=== PATIENT | female | born 1995 | race Caucasian/White ===

== ENCOUNTER 2016-06-19 09:22 | Emergency (ER) | payer OTHER ==
[2016-06-19 09:27] VITALS: TEMP 98.4; BMI 41.5
--- NOTE | 2016-06-19 10:02 | PDOC ---
History of Present Illness - General Chief Complaint: Pain Stated Complaint: VOMITING, DIARRHEA Time Seen by Provider: 06/19/16 09:35 History Source: Patient Exam Limitations: No Limitations - History of Present Illness Travel History: No Initial Comments: 06/19/16 09:57 Came to emergency department with with complaints of acute onset of nausea and vomiting starting early this morning. States has had at least 10 episodes of emesis, 2 episodes of diarrhea stool. No fevers but has felt chills , states abdominal pain is diffuse and primarily epigastric. States over the weekend had excessive drinking, where admits to drinking 9 beers yesterday with whiskey and had equivalent or possibly more on Sunday. states is not a usual pattern for patient, is not an excessive drinker but because of the holiday there were lots of parties they attended. No one else at home is sick, is 4-month-old at home no one else from barbecue or democrat yesterday has been ill with any gastroenteritis or food poisoning. It is had 2 diarrhea stools, but not foul-smelling, no evidence of blood bright red blood or black tarriness. No vaginal issues, no drainage, LMP has been regular. 4 months and currently has IUD Timing/Duration: reports: intermittent Quality: reports: cramping, sharpness Abdominal Pain Onset Location: reports: epigastric, generalized abdomen Pain Radiation: reports: no radiation Alleviating Factors: improves with: None Past History - Travel Traveled outside of the country in the last 30 days: No Close contact w/someone who was outside of country & ill: No - Past Medical History Allergies/Adverse Reactions: Allergies Allergy/AdvReac Type Severity Reaction Status Date / Time No Known Allergies Allergy Verified 06/19/16 09:27 Home Medications: Ambulatory Orders Albuterol Sulfate Inhaler - [Ventolin Hfa Inhaler -] 1 - 2 inh PO Q4H PRN Asthma: Yes (LAST ATTACK 08/18) Cancer: No Cardiac Disorders: No Diabetes: No HTN: No Seizures: No Thyroid Disease: No - Family Disease History Family Disease History: Diabetes: Father - Reproductive History (#): 0 Para: 0 Therapeutic (s) & number: No - Psycho/Social/Smoking Cessation Hx Anxiety: No Suicidal Ideation: No Smoking History: Never smoked Years of Tobacco Use: 7 Have you smoked in the past 12 months: No Number of Cigarettes Smoked Daily: 2 Information on smoking cessation initiated: No Hx Alcohol Use: No Drug/Substance Use Hx: No Substance Use Type: None Hx Substance Use Treatment: No Abd/GI Specific PMHX - Complaint Specific PMHX Colitis: No Diverticulitis: No Gall Bladder Disease: No GERD: No Hepatitis: No Pancreatitis: No GI Ulcer Disease: No Review of Systems - Review of Systems Able to Perform ROS?: Yes Is the patient limited Portuguese proficient: Yes Constitutional: Yes: Symptoms Reported, See HPI, Chills, Malaise. No: Fever HEENTM: Yes: See HPI. No: Symptoms Reported, Nose Congestion, Throat Swelling, Difficulty Swallowing Respiratory: Yes: Symptoms reported, See HPI. No: Cough, Orthopnea, Shortness of Breath Cardiac (ROS): No: Symptoms Reported ABD/GI: Yes: Symptoms Reported : Yes: See HPI. No: Symptoms Reported, Burning, Dysuria, Discharge Integumentary: Yes: See HPI, Pallor. No: Symptoms Reported, Bruising, Erythema , Flushing Neurological: Yes: Symptoms reported All Other Systems: Reviewed and Negative *Physical Exam - Vital Signs Last Vital Signs Temp Pulse Resp BP Pulse Ox 98.4 F 85 18 123/71 98 06/19/16 09:24 06/19/16 09:24 06/19/16 09:24 06/19/16 09:24 06/19/16 09:24 - Physical Exam General Appearance: Yes: Nourished, Appropriately Dressed. No: Apparent Distress, Alcohol on Breath HEENT: positive: MARKEL, Normal ENT Inspection, Normal Voice, TMs Normal, Pharynx Normal Neck: positive: Tender, Supple. negative: Lymphadenopathy (R), Lymphadenopathy (L) Respiratory/Chest: positive: Lungs Clear, Normal Breath Sounds. negative: Respiratory Distress, Decreased Breath Sounds, Wheezing Cardiovascular: positive: Regular Rhythm Gastrointestinal/Abdominal: positive: Normal Bowel Sounds, Soft (rebound tenderness or guarding,, morbidly obese). negative: Tender Musculoskeletal: positive: Normal Inspection. negative: CVA Tenderness Extremity: positive: Normal Capillary Refill, Normal Inspection, Normal Range of Motion Integumentary: positive: Normal Color, Dry, Warm, Pale Neurologic: positive: sales intern II-XII NML intact, Fully Oriented, Alert, Normal Mood/ Affect, Normal Response, Motor Strength 5/5 ED Treatment Course - LABORATORY CBC & Chemistry Diagram: 06/19/16 10:09 06/19/16 10:09 Progress Note - Progress Note Progress Note: Mild pain in acute onset of nausea and vomiting, will check basic labs, provide IV fluids, and reevaluate. May be alcohol related Medical Decision Making - Medical Decision Making 06/19/16 11:52 States feels much improved after IV Zofran, and liter of IV fluids. Laboratory work within normal limits, currently menstruating indicated by +3 blood in urine. Will discharge *DC/Admit/Observation/Transfer Diagnosis at time of Disposition: Gastroenteritis - Discharge Dispostion Disposition: HOME Condition at time of disposition: Stable Admit: No - Patient Instructions Printed Discharge Instructions: DI for Viral Gastroenteritis -- Adult Additional Instructions: Rest, drink lots of fluids: Teas, water, soups Bharati jason, carbonated beverages for the bubbles May try peppermint teas Avoid heavy , spicy or fatty foods until symptoms have resolved Avoid contact with others until fevers and symptoms resolved Lots of handwashing and good hygiene Continue [id number] medications for symptomatic relief Tylenol or Motrin for fever and pain Stop drinking alcohol Followup with private physician in one to 2 days as needed Return to emergency department for worsened symptoms, fevers, dehydration - Post Discharge Activity Work/School Note: Back to Work
[2016-06-19] MEDS ORDERED: ONDANSETRON 4 MG/2 ML VIAL IVPUSH ONE (10:13)
[2016-06-19] MEDS ORDERED: ONDANSETRON 4 MG/2 ML VIAL ONE (10:20)
[2016-06-19 10:39] LABS: BASOPHIL 0.2 % (0-2.0); EOSINOPHIL 1.4 % (0-4.5); MCH 22.8 pg (25.7-33.7); MCHC 32.1 g/dl (32.0-36.0); MEAN PLT VOLUME 8.1 fl (7.5-11.1); PLATELET COUNT 255 K/MM3 (134-434); RDW 20.1 % (11.6-15.6); WHITE BLOOD COUNT 7.8 K/mm3 (4.0-10.0)
[2016-06-19 10:41] LABS: ALBUMIN 3.9 g/dl (3.4-5.0); ANION GAP 7 (8-16); BILIRUBIN,TOTAL 0.8 mg/dL (0.2-1.0); CALCIUM 8.9 mg/dL (8.5-10.1); CO2 28 mmol/L (21-32); CREATININE 0.6 mg/dL (0.55-1.02); GLUCOSE,RANDOM 100 mg/dL (74-106); SGOT/AST 22 U/L (15-37); SGPT/ALT 33 U/L (12-78); TOT PROT 7.3 g/dl (6.4-8.2); URINE APPEARANCE CLEAR; URINE BILIRUBIN NEGATIVE (NEGATIVE); URINE COLOR YELLOW; URINE GLUCOSE (UA) NEGATIVE (NEGATIVE); URINE KETONE 1+ (NEGATIVE); URINE LEUK ESTERASE NEGATIVE (NEGATIVE); URINE NITRITE NEGATIVE (NEGATIVE); URINE UROBILINOGEN 4.0 E.U/dl E.U./dl (0.2-1.0)
[2016-06-19 10:42] LABS: ALK PHOS 116 U/L (45-117)
--- NOTE | 2016-06-19 10:42 | PDOC ---
*Physical Exam - Vital Signs Last Vital Signs Temp Pulse Resp BP Pulse Ox 98.4 F 85 18 123/71 98 06/19/16 09:24 06/19/16 09:24 06/19/16 09:24 06/19/16 09:24 06/19/16 09:24 ED Treatment Course - LABORATORY CBC & Chemistry Diagram: 06/19/16 10:09 06/19/16 10:09 - Medications Given in the ED: ED Medications Discontinued Medications Generic Name Dose Route Start Last Admin Trade Name Aroldo PRN Reason Stop Dose Admin Ondansetron HCl 4 mg 06/19/16 10:13 06/19/16 10:24 Zofran Injection IVPUSH 06/19/16 10:14 4 mg ONCE ONE Administration Medical Decision Making - Medical Decision Making 06/19/16 10:42 Pt seen by the Advanced Practice Provider under my direct supervision Ancillary studies reviewed I agree with plan as outlined by the Advanced Practice Provider KRISTA Ramirez *DC/Admit/Observation/Transfer Diagnosis at time of Disposition: Gastroenteritis - Discharge Dispostion Disposition: HOME Condition at time of disposition: Stable - Referrals Referrals: Purnima Campbell [Primary Care Provider] - - Patient Instructions Printed Discharge Instructions: DI for Viral Gastroenteritis -- Adult Additional Instructions: Rest, drink lots of fluids: Teas, water, soups Bharati jason, carbonated beverages for the bubbles May try peppermint teas Avoid heavy , spicy or fatty foods until symptoms have resolved Avoid contact with others until fevers and symptoms resolved Lots of handwashing and good hygiene Continue [id number] medications for symptomatic relief Tylenol or Motrin for fever and pain Stop drinking alcohol Followup with private physician in one to 2 days as needed Return to emergency department for worsened symptoms, fevers, dehydration - Post Discharge Activity Work/School Note: Back to Work
[2016-06-19 11:26] LABS: URINE BLOOD 3+ (NEGATIVE); URINE PROTEIN 1+ (NEGATIVE)
[2016-06-19 12:18] VITALS: BP 120/68; PULSE 80
[2016-06-19 16:36] LABS: ANISOCYTOSIS 1+; HYPOCHROMIA 1+; MICROCYTOSIS 1+
== END 2016-06-19 12:00 | disposition home or self-care (01) ==
LOC: JER 09:22
PROC: 3E033GC Introduction of Other Therapeutic Substance into Peripheral Vein, Percutaneous Approach (ICD-10-PCS; principal; 2016-06-19)
DX: K52.9 Noninfective gastroenteritis and colitis, unspecified (principal)
CPT/HCPCS: 36415; 80053; 80307; 81003; 81015; 84703; 85025; 99283-25

== ENCOUNTER 2018-10-27 09:59 | Emergency (ER) | payer OTHER ==
[2018-10-27 10:05] VITALS: BMI 32.4
--- NOTE | 2018-10-27 10:19 | PDOC ---
History of Present Illness - General Chief Complaint: Nausea/Vomiting Stated Complaint: VOMITING/ ABD PAIN Time Seen by Provider: 10/27/18 10:15 History Source: Patient Exam Limitations: Language Barrier (zimbabwean) - History of Present Illness Initial Comments: 10/27/18 10:44 Margarita Zheng is a 22yF w PMHx asthma, obesity presenting w epigastric pain and vomiting. Woke up at 4a this morning w sudden onset epgiastric pain. Associated nausea and vomiting 7x, non bloody. Unable to keep fluids down. Took zantac without relief. At [employer] at restaurant last night w family, no one else sick. Last bowel movement 1 day ago, normal.l No abdominal surgeries. Denies fever, SOB, chest pain, urinary/bowel mvmt changes. Past History - Past Medical History Allergies/Adverse Reactions: Allergies Allergy/AdvReac Type Severity Reaction Status Date / Time No Known Allergies Allergy Verified 10/27/18 10:05 Home Medications: Ambulatory Orders Albuterol Sulfate Inhaler - [Ventolin Hfa Inhaler -] 1 - 2 inh PO Q4H PRN Asthma: Yes (LAST ATTACK 08/18) Cancer: No Cardiac Disorders: No COPD: No CHF: No Diabetes: No HTN: No Hypercholesterolemia: No Kidney Stones: No Seizures: No Thyroid Disease: No - Surgical History Abdominal Surgery: No Appendectomy: No Cardiac Surgery: No Cholecystectomy: No Gastric Stapling: No GI Surgery: No Lung Surgery: No Neurologic Surgery: No Orthopedic Surgery: No - Family Disease History Family Disease History: Diabetes: Father - Reproductive History (#): 0 Para: 0 Therapeutic (s) & number: No - Suicide/Smoking/Psychosocial Hx Smoking History: Never smoked Years of Tobacco Use: 7 Have you smoked in the past 12 months: No Number of Cigarettes Smoked Daily: 2 Hx Alcohol Use: No Drug/Substance Use Hx: No Substance Use Type: None Hx Substance Use Treatment: No Review of Systems - Review of Systems Constitutional: No: Chills, Fever HEENTM: No: Eye Pain, Ear Pain, Nose Pain, Nose Congestion, Throat Pain, Mouth Pain Respiratory: No: Cough, Shortness of Breath Cardiac (ROS): No: Chest Pain, Palpitations, Syncope ABD/GI: Yes: Nausea, Poor Appetite, Poor Fluid Intake, Vomiting. No: Abdominal Distended, Constipated, Diarrhea : No: Burning, Dysuria, Discharge, Flank Pain, Hematuria, Incontinence Musculoskeletal: No: Back Pain, Joint Pain, Muscle Pain, Muscle Weakness Integumentary: No: Bruising, Flushing, Lesions Neurological: No: Headache, Paresthesia, Seizure, Tingling, Tremors Psychiatric: No: Anxiety, Depression Endocrine: No: Excessive Sweating, Flushing, Intolerance to Cold, Intolerance to Heat Hematologic/Lymphatic: No: Anemia, Blood Clots, Easy Bleeding *Physical Exam - Vital Signs Last Vital Signs Temp Pulse Resp BP Pulse Ox 98.6 F 80 16 107/62 100 10/27/18 10:03 10/27/18 10:03 10/27/18 10:03 10/27/18 10:03 10/27/18 10:03 - Physical Exam General Appearance: Yes: Nourished, Appropriately Dressed, Mild Distress, Obese. No: Alcohol on Breath, Intoxicated HEENT: positive: EOMI, MARKEL, Normal Voice, Hearing Grossly Normal. negative: Pale Conjunctivae, Scleral Icterus (R), Scleral Icterus (L), Nasal Congestion, Rhinorrhea Respiratory/Chest: positive: Lungs Clear, Normal Breath Sounds. negative: Chest Tender, Respiratory Distress, Crackles, Rales, Rhonchi, Stridor, Wheezing Cardiovascular: positive: Regular Rhythm, Regular Rate, S1, S2. negative: Edema , Murmur Gastrointestinal/Abdominal: positive: Normal Bowel Sounds, Tender (moderate tenderness to palpation epigastric region), Flat, Soft, Guarding (mild guarding epigastric region). negative: Organomegaly, Pulsatile Mass, Distended, Rebound , Hernia Extremity: positive: Delayed Capillary Refill Integumentary: positive: Normal Color, Dry Neurologic: positive: Fully Oriented, Alert, Normal Mood/Affect, Normal Response , Responsive. negative: Sensory Deficit, Confused, Disoriented ED Treatment Course - LABORATORY CBC & Chemistry Diagram: 10/27/18 11:14 10/27/18 11:14 Medical Decision Making - Medical Decision Making 10/27/18 10:42 CXR EKG CBC CMP lipase UAHCG zofran for nausea, 1L NS, pepcid, maalox for GI upset EKG shows NSR, trop neg CBC, CMP normal + HCG - , ordered TVUS, HCG quant RUQ US did not show signs of cholangitis TVUS showed IUP estimated gestational age 6 weeks w heart activity. L ovarian cyst 6.2 x 5.8cm likely hemorrhagic corpus luteal cyst CXR clear, UA normal Margarita Zheng is a 22yF w PMHx asthma, obesity presenting w epigastric pain and vomiting. Symptoms due to w +HCG. TVUS showed IUP estimated gestational age 6 weeks w heart activity. L ovarian cyst 6.2 x 5.8cm likely hemorrhagic corpus luteal cyst. Unlikely ovarian torsion - no LLQ tenderness, absent 10/10 lower AB pain. RUQ US showed no signs of cholangitis. Not ACS in setting of NSR EKG, neg trop, no UTI. CXR clear lungs. Given zofran for nausea, 1L NS, pepcid, maalox for GI upset D/c home w follow up w obgyn for and L ovarian cyst. *DC/Admit/Observation/Transfer Diagnosis at time of Disposition: Left ovarian cyst, Hyperemesis gravidarum Normal IUP (intrauterine ) on ultrasound Qualifiers: Trimester: first trimester Qualified Code(s): Z34.91 - Encounter for supervision of normal , unspecified, first trimester - Discharge Dispostion Disposition: HOME Condition at time of disposition: Improved Decision to Admit order: No - Referrals Referrals: Purnima Campbell [Primary Care Provider] - - Patient Instructions Printed Discharge Instructions: DI for -- Discomforts and Remedies Additional Instructions: You were seen for abdominal pain and vomiting. Your labs and ultrasound shows that you are and have a left ovarian cyst. You were given medication to relieve your pain and vomiting. Please make an appointment with your obgyn Dr Posey regarding your and ovarian cyst. Start taking vitamins. Come back to the ED if you continue vomiting, have lower abdominal pain Print Language: CAPE VERDEAN - Post Discharge Activity
[2018-10-27] MEDS ORDERED: FAMOTIDINE 20 MG/50 ML IVPB 20 MG/50 ML MG IVPB ONE ×2 (10:37→10:58)
[2018-10-27] MEDS ORDERED: ONDANSETRON 4 MG/2 ML VIAL IVPUSH ONE (10:37)
[2018-10-27] MEDS ORDERED: SODIUM CHLORIDE 0.9% 500 ML INFUS.BAG IV ONE (10:37)
[2018-10-27] MEDS ORDERED: MAG HYDROX/AL HYDROX/SIMETH -MYLANTA- ORAL SUSPENSION PO ONE (10:38)
[2018-10-27] MEDS ORDERED: ONDANSETRON 4 MG/2 ML VIAL ONE (10:57)
[2018-10-27] MEDS ORDERED: MAG HYDROX/AL HYDROX/SIMETH 30 ML UNIT-DOSE CUP ONE (10:57)
[2018-10-27 11:24] LABS: BASO % 0.5 % (0-2.0); EOS % 1.1 % (0-4.5); HEMATOCRIT 33.3 % (32.4-45.2); LYMPH % 22.5 % (8-40); MCH 23.7 pg (25.7-33.7); MCHC 32.9 g/dl (32.0-36.0); MEAN PLT VOLUME 7.7 fl (7.5-11.1); NEUT % 68.9 % (42.8-82.8); PLATELET COUNT 303 K/MM3 (134-434); RBC 4.63 M/mm3 (3.60-5.2); RDW 19.6 % (11.6-15.6); WHITE BLOOD COUNT 8.1 K/mm3 (4.0-10.0)
--- NOTE | 2018-10-27 11:36 | PDOC ---
Documentation entered by Aleshia Rabago SCRIBE, acting as scribe for Simon Pimentel MD. Simon Pimentel MD: This documentation has been prepared by the Gem aiken Nirvannie, SCRIBE, under my direction and personally reviewed by me in its entirety. I confirm that the documentation accurately reflects all work, treatment, procedures, and medical decision making performed by me. Attending Attestation - Resident Resident Name: Jn Moreland - ED Attending Attestation I have performed the following: I have examined & evaluated the patient, The case was reviewed & discussed with the resident, I agree w/resident's findings & plan, Exceptions are as noted - HPI HPI: 10/27/18 11:27 The patient is a 22 year old female, with a significant past medical history of asthma, who presents to the emergency department with, 1 day of sudden onset epigastric abdominal pain, nausea with approximately 7 episodes of emesis. Patient took Zantac, without relief. She denies anyone in the family being sick with similar symptoms. She denies recent fevers, chills, diarrhea, headache, or dizziness. She denies recent dysuria, frequency, urgency, or hematuria. She denies recent chest pain or shortness of breath. Allergies: NKDA Primary Care Physician: Dr. Campbell - Physicial Exam PE: 10/27/18 11:39 "GENERAL: Awake, alert, and fully oriented, in no acute distress. HEAD: No signs of trauma EYES: PERRLA, EOMI, sclera anicteric, conjunctiva clear ENT: Auricles normal inspection, hearing grossly normal, nares patent, oropharynx clear without exudates. Moist mucosa NECK: Nontender, no stepoffs, Normal ROM, supple, no lymphadenopathy, JVD, or masses LUNGS: Breath sounds equal, clear to auscultation bilaterally. No wheezes, and no crackles HEART: Regular rate and rhythm, normal S1 and S2, no murmurs, rubs or gallops ABDOMEN: + RUQ TTP, normoactive bowel sounds. No guarding, no rebound. No masses EXTREMITIES: Normal range of motion, no edema. No clubbing or cyanosis. No cords, erythema, or tenderness NEUROLOGICAL: Cranial nerves II through XII intact. 5/5 strength and sensation in all extremities, Normal speech, normal gait, normal cerebellar function SKIN: Warm, Dry, normal turgor, no rashes or lesions noted. - Medical Decision Making 10/27/18 11:39 22 F with epigastric and RUQ pain, vomiting. Will evaluate for olivia/ pancreatitis. No lower abdominal pain to suggest appy/colitis/diverticulitis or pelvic pathology. - Labs, lipase - RUQ sono - GI cocktail 10/27/18 11:42 Pt with + test Will add OB US 10/27/18 13:21 US shows viable 6wk as well as large L ovarian cyst. Pt without LLQ pain or other s/s of ovarian torsion Pt reports that she had an IUD in place, but it is not visualized on the US. Likely fell out. RUQ sono negative Pt reassessed - tolerating PO Pt is well appearing, with normal vitals. Clinically stable for DC at this time. I discussed the physical exam findings, ancillary test results and final diagnoses with the patient. I answered all of the patient's questions. The patient was satisfied with the care received and felt comfortable with the discharge plan and treatment plan. The patient agrees to follow up with the primary care physician within 24-72 hours. 10/27/18 13:31
[2018-10-27 11:58] LABS: ALBUMIN 3.7 g/dl (3.4-5.0); ALK PHOS 91 U/L (45-117); ANION GAP 5 MMOL/L (8-16); BILIRUBIN,TOTAL 0.3 mg/dL (0.2-1); BLOOD UREA NITROGEN 10.7 mg/dL (7-18); CALCIUM 8.9 mg/dL (8.5-10.1); CHLORIDE 105 mmol/L (98-107); CO2 27 mmol/L (21-32); CREATININE 0.6 mg/dL (0.55-1.3); GLUCOSE,RANDOM 99 mg/dL (74-106); LIPASE 70 U/L (73-393); POTASSIUM 4.2 mmol/L (3.5-5.1); SGOT/AST 17 U/L (15-37); SGPT/ALT 20 U/L (13-61); SODIUM 137 mmol/L (136-145); TOT PROT 6.9 g/dl (6.4-8.2)
[2018-10-27 14:59] LABS: PH,URINE 7.5 (5.0-8.0); URINE APPEARANCE CLEAR; URINE BILIRUBIN NEGATIVE (NEGATIVE); URINE COLOR YELLOW; URINE GLUCOSE (UA) NEGATIVE (NEGATIVE); URINE KETONE NEGATIVE (NEGATIVE); URINE LEUK ESTERASE NEGATIVE (NEGATIVE); URINE NITRITE NEGATIVE (NEGATIVE); URINE PROTEIN NEGATIVE (NEGATIVE); URINE UROBILINOGEN 0.2 mg/dL (0.2-1.0)
[2018-10-27 15:18] VITALS: BP 110/61; PULSE 78; TEMP 97.8
--- NOTE | 2018-10-28 08:17 | EKG ---
Test Reason : Blood Pressure : / mmHG Vent. Rate : 077 BPM Atrial Rate : 077 BPM P-R Int : 158 ms QRS Dur : 086 ms QT Int : 380 ms P-R-T Axes : 048 -16 008 degrees QTc Int : 430 ms NORMAL SINUS RHYTHM MINIMAL VOLTAGE CRITERIA FOR LVH, MAY BE NORMAL VARIANT BORDERLINE ECG NO PREVIOUS ECGS AVAILABLE Confirmed by OSVALDO LEONARD, CHINO ([id number]) on 10/28/2018 8:16:35 AM Referred By: Confirmed By:CHINO RILEY MD
== END 2018-10-27 15:24 | disposition home or self-care (01) ==
LOC: JER 09:59
PROC: 3E033GC Introduction of Other Therapeutic Substance into Peripheral Vein, Percutaneous Approach (ICD-10-PCS; principal; 2018-10-27)
PROC: 3E033GC Introduction of Other Therapeutic Substance into Peripheral Vein, Percutaneous Approach (ICD-10-PCS; 2018-10-27)
DX: O26.891 Other specified pregnancy related conditions, first trimester (principal); O21.0 Mild hyperemesis gravidarum; O34.81 Maternal care for other abnormalities of pelvic organs, first trimester; N83.202 Unspecified ovarian cyst, left side; Z3A.01 Less than 8 weeks gestation of pregnancy
CPT/HCPCS: 36415; 71045-TC-FY; 76705-TC; 76817-TC; 80053; 81003; 82550; 83690; 84484; 84702; 84703; 85025; 93005; 93010; 96365; 96375; 99283-25

== ENCOUNTER 2018-11-29 08:52 | Emergency (ER) | payer OTHER ==
[2018-11-29 09:04] VITALS: BP 108/64; PULSE 80; TEMP 97.9; BMI 32.3
--- NOTE | 2018-11-29 09:07 | PDOC ---
History of Present Illness <Simone Fulton - Last Filed: 11/29/18 11:45> - General History Source: Patient Exam Limitations: No Limitations - History of Present Illness Initial Comments: Pt is a 22 yo F, @10 weeks, who is presenting from home with complaints of persistent nausea/vomiting x2 days. Pt states she has not been able to tolerate PO intake during this time, and was unable to urinate today. Pt denies any abdominal pain or vaginal bleeding, and has an appointment for OB US at 1pm today. Pt denies any fevers/chills, headache, vision changes, syncope, chest pain, palpitations, SOB, abdominal pain, urinary symptoms, diarrhea/constipation , or leg swelling. Allergies: NKDA PCP: Dr. Campbell OB: Dr. Silvia Posey Social: Pt denies any cigarette, alcohol, or drug use. Pt denies any recent travel or sick contacts. Surgical: no relevant history. Family: no relevant history. 11/29/18 09:47 <Lavern Andrade - Last Filed: 11/29/18 11:53> - General Chief Complaint: ,Possible Stated Complaint: NAUSEA/10 WEEKS Time Seen by Provider: 11/29/18 09:07 Past History <Simone Fulton - Last Filed: 11/29/18 11:45> - Travel Traveled outside of the country in the last 30 days: No Close contact w/someone who was outside of country & ill: No - Past Medical History Asthma: Yes (LAST ATTACK 08/18) Cancer: No Cardiac Disorders: No COPD: No CHF: No Diabetes: No HTN: No Hypercholesterolemia: No Kidney Stones: No Seizures: No Thyroid Disease: No - Surgical History Abdominal Surgery: No Appendectomy: No Cardiac Surgery: No Cholecystectomy: No Gastric Stapling: No GI Surgery: No Lung Surgery: No Neurologic Surgery: No Orthopedic Surgery: No - Reproductive History (#): 0 Para: 0 Therapeutic (s) & number: No - Psycho Social/Smoking Cessation Hx Smoking History: Never smoked Years of Tobacco Use: 7 Have you smoked in the past 12 months: No Number of Cigarettes Smoked Daily: 2 Information on smoking cessation initiated: No Hx Alcohol Use: No Drug/Substance Use Hx: No Substance Use Type: None Hx Substance Use Treatment: No <Lavern Andrade - Last Filed: 11/29/18 11:53> - Past Medical History Allergies/Adverse Reactions: Allergies Allergy/AdvReac Type Severity Reaction Status Date / Time No Known Allergies Allergy Verified 10/27/18 10:05 Home Medications: Ambulatory Orders Albuterol Sulfate Inhaler - [Ventolin Hfa Inhaler -] 1 - 2 inh PO Q4H PRN Doxylamine Succinate/Vit B6 [Rachel Herron 10-10 mg Tablet] 1 each PO ASDIR #30 tablet. 11/29/18 Abd/GI Specific PMHX - Complaint Specific PMHX Colitis: No Diverticulitis: No Gall Bladder Disease: No GERD: No Hepatitis: No Irritable Bowel Synd (IBS): No Pancreatitis: No GI Ulcer Disease: No <Lavern Andrade - Last Filed: 11/29/18 11:53> Review of Systems - Review of Systems Able to Perform ROS?: Yes Is the patient limited Turkish proficient: No Constitutional: Yes: Weight Stable. No: Chills, Diaphoresis, Fever, Loss of Appetite, Malaise, Weakness HEENTM: No: Recent change in vision, Nose Congestion, Throat Pain, Throat Swelling, Difficulty Swallowing Respiratory: No: Cough, Orthopnea, Shortness of Breath Cardiac (ROS): No: Chest Pain, Edema, Irregular Heart Rate, Lightheadedness, Palpitations, Syncope, Chest Tightness ABD/GI: Yes: Nausea, Poor Appetite, Poor Fluid Intake, Vomiting. No: Constipated, Diarrhea, Indigestion, Abdominal cramping : No: Burning, Dysuria, Frequency, Flank Pain, Hematuria, Pain, Urgency Musculoskeletal: No: Muscle Pain, Muscle Weakness Integumentary: No: Rash Neurological: No: Headache, Numbness, Weakness, Unsteady Gait, Dizziness Psychiatric: No: Sleep Pattern Change, Change in Appetite Endocrine: No: Increased Urine, Change in Weight Hematologic/Lymphatic: No: Anemia, Blood Clots, Easy Bleeding, Easy Bruising All Other Systems: Reviewed and Negative <Lavern Andrade - Last Filed: 11/29/18 11:53> *Physical Exam - Vital Signs Last Vital Signs Temp Pulse Resp BP Pulse Ox 97.9 F 80 18 108/64 98 11/29/18 08:58 11/29/18 08:58 11/29/18 08:58 11/29/18 08:58 11/29/18 08:58 <Simone Fulton - Last Filed: 11/29/18 11:45> - Vital Signs Last Vital Signs Temp Pulse Resp BP Pulse Ox 97.9 F 80 18 108/64 98 11/29/18 08:58 11/29/18 08:58 11/29/18 08:58 11/29/18 08:58 11/29/18 08:58 - Physical Exam Comments: Vitals stable, pt afebrile. Pt actively vomiting clear fluid in the room, overweight body habitus. Pt alert and oriented x3. 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 No midline spinal tenderness, step-offs, or crepitus. Head normocephalic, atraumatic. Eyes PERRLA, EOMI. Oropharynx without erythema or exudates, no LAD b/l. No nasal congestion, hearing intact. Clear heart sounds, S1/S2, no JVD, b/l pedal edema, or heart murmur. Clear lung sounds, no respiratory distress, wheezes, crackles, or accessory muscle use. No abdominal or CVA tenderness to palpation, no rebound, no guarding. Abdomen soft, non-distended, and with normoactive bowel sounds. Fundal height appropriate for gestational age. Skin without jaundice or rash. 11/29/18 09:49 <Lavern Andrade - Last Filed: 11/29/18 11:53> ED Treatment Course - LABORATORY CBC & Chemistry Diagram: 11/29/18 09:29 11/29/18 09:29 - ADDITIONAL ORDERS Additional order review: Laboratory Results 11/29/18 09:29 Sodium 137 Potassium 3.8 Chloride 104 Carbon Dioxide 26 Anion Gap 7 L BUN 7.7 Creatinine 0.6 Est GFR (CKD-EPI)AfAm 147.86 Est GFR (CKD-EPI)NonAf 127.58 Random Glucose 99 Calcium 9.3 Total Bilirubin 0.3 AST 12 L ALT 14 Alkaline Phosphatase 75 Total Protein 6.7 Albumin 3.4 Lipase 83 Beta HCG, Quant 60707.6 11/29/18 09:29 RBC 4.61 MCV 74.5 L MCHC 32.3 RDW 18.3 H MPV 8.1 Neutrophils % 66.7 Lymphocytes % 23.3 Monocytes % 8.2 Eosinophils % 1.2 Basophils % 0.6 - Medications Given in the ED: ED Medications Discontinued Medications Generic Name Dose Route Start Last Admin Trade Name Aroldo PRN Reason Stop Dose Admin Famotidine/Sodium Chloride 20 mg in 50 mls @ 100 mls/hr 11/29/18 09:20 09:52 Pepcid 20 Mg Premixed Ivpb - IVPB 11/29/18 09:49 100 mls/hr ONCE ONE Administration Sodium Chloride 1,000 mls @ 1,000 mls/hr 11/29/18 09:20 11/29/18 09:52 Normal Saline - IV 11/29/18 10:19 1,000 mls/hr ASDIR STA Administration Ondansetron HCl 4 mg 11/29/18 09:08 11/29/18 09:52 Zofran Odt - SL 11/29/18 09:09 Not Given ONCE ONE Ondansetron HCl 4 mg 11/29/18 09:20 11/29/18 09:52 Zofran Injection IVPUSH 11/29/18 09:21 4 mg ONCE ONE Administration Sodium Chloride 1,000 ml 11/29/18 10:28 11/29/18 10:39 Normal Saline - IV 11/29/18 10:29 1,000 ml ONCE ONE Administration <Simone Fulton - Last Filed: 11/29/18 11:45> - LABORATORY CBC & Chemistry Diagram: 11/29/18 09:29 11/29/18 09:29 <Lavern Andrade - Last Filed: 11/29/18 11:53> Medical Decision Making - Medical Decision Making Pt was seen at bedside, also will be seen by attending Dr. Fulton. Pt presenting with complaints of persistent nausea/vomiting @10 weeks. No abdominal pain or vaginal bleeding. Will evaluate electrolytes, LFTs, and urine for infection. Pt had TVUS done at 6 weeks which showed IUP. PT has f/u OB US appointment today at 1 pm. Provided 1 L IV NS, 4 mg IV zofran, and 20 mg IV pepcid for improvement of nausea and vomiting, hydration. Will continue to reassess pt and monitor for symptomatic improvement. 11/29/18 09:50 CMP WNL. Pt still unable to urinate. Providing additional 1 L IV NS (2 L total) . 11/29/18 10:46 Pt symptoms much improved. Ambulatory in ED and tolerated PO intake. Pt going to OB appointment at 1 pm. Sent Diclegis to pt pharmacy. Strict return precautions provided with pt understanding. 11/29/18 11:52 <LupeLavern - Last Filed: 11/29/18 11:53> Discharge - Discharge Information Problems reviewed: Yes - Admission No <Simone Fulton - Last Filed: 11/29/18 11:45> - Discharge Information Problems reviewed: Yes - Admission No <LupeLavern - Last Filed: 11/29/18 11:53> - Discharge Information Clinical Impression/Diagnosis: Intrauterine Nausea and vomiting Qualifiers: Vomiting type: unspecified Vomiting Intractability: non-intractable Qualified Code(s): R11.2 - Nausea with vomiting, unspecified Condition: Improved Disposition: HOME - Additional Discharge Information Prescriptions: Doxylamine Succinate/Vit B6 [Diclegis Dr 10-10 mg Tablet] 1 each PO ASDIR #30 tablet.dr - Follow up/Referral Referrals: Purnima Campbell [Primary Care Provider] - - Patient Discharge Instructions Patient Printed Discharge Instructions: DI for Hyperemesis Gravidarum Additional Instructions: Take two DICLEGIS delayed-release tablets orally at bedtime (Day 1). If this dose adequately controls symptoms the next day, continue taking two tablets daily at bedtime. However, if symptoms persist into the afternoon of Day 2, take the usual dose of two tablets at bedtime that night then take three tablets starting on Day 3 (one tablet in the morning and two tablets at bedtime) . If these three tablets adequately control symptoms on Day 4, continue taking three tablets daily. Otherwise take four tablets starting on Day 4 (one tablet in the morning, one tablet mid-afternoon and two tablets at bedtime). Follow-up with your [facility]NER today. Return to ED for any severe worsening symptoms or for any concerns. [place] dos tabletas de liberacin retardada de DICLEGIS por va oral al acostarse (da 1). Si esta dosis controla adecuadamente los sntomas al da siguiente, contine tomando dos tabletas al da antes de acostarse. Sin embargo, si los sntomas persisten hasta la tarde del da 2, tome la dosis habitual de dos tabletas al acostarse rossy noche y luego tome terrence tabletas a partir del da 3 ( akin tableta en la maana y dos tabletas a la hora de acostarse). Si estas terrence tabletas controlan adecuadamente los sntomas el da 4, contine tomando terrence tabletas al da. De lo contrario, tome cuatro tabletas a partir del da 4 (akin tableta en la maana, akin tableta a media tarde y dos tabletas a la hora de acostarse). Garry un seguimiento con barnhart obstetra / gineclogo hoy. Regrese a la [place] por cualquier sntoma de empeoramiento grave o por cualquier inquietud.
[2018-11-29] MEDS ORDERED: ONDANSETRON *ODT* 4 MG TABLET SL ONE (09:08)
[2018-11-29] MEDS ORDERED: SODIUM CHLORIDE 1,000 ML IV STA (09:20)
[2018-11-29] MEDS ORDERED: ONDANSETRON 4 MG/2 ML VIAL IVPUSH ONE (09:20)
[2018-11-29] MEDS ORDERED: FAMOTIDINE 20 MG/50 ML IVPB 20 MG/50 ML MG IVPB ONE ×2 (09:20→09:28)
[2018-11-29] MEDS ORDERED: ONDANSETRON 4 MG/2 ML VIAL ONE (09:27)
[2018-11-29 09:37] LABS: BASO % 0.6 % (0-2.0); EOS % 1.2 % (0-4.5); HEMATOCRIT 34.4 % (32.4-45.2); HEMOGLOBIN 11.1 GM/dL (10.7-15.3); LYMPH % 23.3 % (8-40); MCHC 32.3 g/dl (32.0-36.0); MEAN CELL VOLUME 74.5 fl (80-96); MEAN PLT VOLUME 8.1 fl (7.5-11.1); MONO % 8.2 % (3.8-10.2); NEUT % 66.7 % (42.8-82.8); PLATELET COUNT 319 K/MM3 (134-434); RBC 4.61 M/mm3 (3.60-5.2); RDW 18.3 % (11.6-15.6); WHITE BLOOD COUNT 8.5 K/mm3 (4.0-10.0)
[2018-11-29 10:22] LABS: ALBUMIN 3.4 g/dl (3.4-5.0); BILIRUBIN,TOTAL 0.3 mg/dL (0.2-1); BLOOD UREA NITROGEN 7.7 mg/dL (7-18); CALCIUM 9.3 mg/dL (8.5-10.1); CREATININE 0.6 mg/dL (0.55-1.3); POTASSIUM 3.8 mmol/L (3.5-5.1); TOT PROT 6.7 g/dl (6.4-8.2)
[2018-11-29] MEDS ORDERED: SODIUM CHLORIDE 0.9% 1000 ML INFUS.BAG IV ONE (10:28)
--- NOTE | 2018-11-29 11:45 | PDOC ---
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 - Physicial Exam PE: 11/29/18 12:08 Vitals: Triage Vital signs reviewed General Appearance: no acute distress, well nourished well developed, Head: Atraumatic, Neck: Supple;No Nucal rigidity Chest Wall: Nontender Cardiac: Regular rate and rhythym, no murmurs, no rubs, no gallops, Lungs: Clear to auscultation bilateral, good air movement bilaterally, Abdomen: Soft, non distended, normal bowel sounds, non tender to palpation Extremities: Full range of motion to all extremities, no cyanosis, clubbing, or edema Skin: Warm and dry, no rashes or lesions, no rash, no petechiae Psych: normal mood, normal affect - Medical Decision Making 11/29/18 18:33 Laboratory analysis within normal limits patient feels much better now tolerating fluids by mouth. She is requesting to leave so she can make her discharge appointment at 12 with her MEAT AND SEAFOOD MANAGER Findings, the need for follow-up and strict return instructions discussed with patient.
== END 2018-11-29 12:15 | disposition home or self-care (01) ==
LOC: JER 08:52
PROC: 3E033GC Introduction of Other Therapeutic Substance into Peripheral Vein, Percutaneous Approach (ICD-10-PCS; principal; 2018-11-29)
PROC: 3E033GC Introduction of Other Therapeutic Substance into Peripheral Vein, Percutaneous Approach (ICD-10-PCS; 2018-11-29)
DX: O26.891 Other specified pregnancy related conditions, first trimester (principal); O21.0 Mild hyperemesis gravidarum; Z3A.10 10 weeks gestation of pregnancy; Z87.09 Personal history of other diseases of the respiratory system
CPT/HCPCS: 36415; 80053; 83690; 84702; 85025; 96365; 96375; 99282-25; J7030